=== PATIENT | female | born 1985 | race Caucasian/White ===

== ENCOUNTER 2025-05-18 11:26 | Emergency (ER) | payer MEDICAID ==
[~2025-05-18] VITALS: Ht 160 cm; Wt 59.0 kg
[2025-05-18 11:37] VITALS: BP 124/77
[2025-05-18 12:06] LABS: *BILIRUBIN,URIN NEGATIVE (NEGATIVE); *BLOOD, URINE NEGATIVE (NEGATIVE); *CLARITY,URINE CLEAR (CLEAR); *COLOR,URINE YELLOW (YELLOW); *KETONES,URINE 1+ (NEGATIVE); *PROTEIN,URINE TRACE (NEGATIVE); *UROBILINOGEN,URINE 0.2 E.U./dl (NORMAL); LEUKOCYTE ESTERASE ,URINE NEGATIVE (NEGATIVE); NITRITE, URINE NEGATIVE (NEGATIVE); UGLUCOSE NEGATIVE (NEGATIVE)
[2025-05-18 12:08] LABS: SQUAMOUS EPITHELIAL CELL,UR FEW /HPF (NONE SEEN)
[2025-05-18 12:11] LABS: *URINE HCG, QUAL NEGATIVE (NEGATIVE)
[2025-05-18 12:14] LABS: PLATELET COUNT (AUTO) 180 K/uL (179-408); RED BLOOD CELL COUNT(AUTO) 4.61 MIL/uL (3.63-4.92); RED CELL DISTRIBUTION WIDTH 13.1 % (12.3-17.7); WHITE BLOOD COUNT (AUTO) 6.5 K/uL (3.8-11.8)
[2025-05-18 12:28] LABS: ASPARTATE AMINOTRANSFERASE 21.0 U/L (15-37); CREATININE 0.7 mg/dL (0.6-1.3); SODIUM SERUM 137.0 mmol/L (136-145); TOTAL PROTEIN, SERUM 8.0 g/dL (6.4-8.2); UREA NITROGEN, BLOOD 13.0 mg/dL (7-18)
[2025-05-18 13:04] VITALS: BP 124/77; O2SAT 99
== END 2025-05-18 13:05 | disposition home or self-care (01) ==
LOC: ER 11:26
DX: B33.8 Other specified viral diseases (principal); E11.9 Type 2 diabetes mellitus without complications; Z79.899 Other long term (current) drug therapy
CPT/HCPCS: 36415; 84703; 85025; A4606; A4663

== ENCOUNTER 2025-06-08 22:19 | Emergency (ER) | payer MEDICAID ==
[~2025-06-08] VITALS: Ht 160 cm; Wt 59.0 kg
[2025-06-08 22:25] VITALS: BP 122/74
[2025-06-08] MEDS ORDERED: CEPH500C2 PO (22:34)
[2025-06-08 22:39] LABS: *BILIRUBIN,URIN NEGATIVE (NEGATIVE); *CLARITY,URINE CLEAR (CLEAR); *COLOR,URINE YELLOW (YELLOW); *KETONES,URINE NEGATIVE (NEGATIVE); *PROTEIN,URINE NEGATIVE (NEGATIVE); *UROBILINOGEN,URINE 0.2 E.U./dl (NORMAL); LEUKOCYTE ESTERASE ,URINE 1+ (NEGATIVE); NITRITE, URINE NEGATIVE (NEGATIVE); UGLUCOSE NEGATIVE (NEGATIVE)
[2025-06-08 22:42] LABS: *BLOOD, URINE TRACE (NEGATIVE)
[2025-06-08 23:07] LABS: SQUAMOUS EPITHELIAL CELL,UR FEW /HPF (NONE SEEN)
[2025-06-08 23:08] VITALS: BP 125/75; O2SAT 99
== END 2025-06-08 22:49 | disposition home or self-care (01) ==
LOC: ER 22:23
DX: N39.0 Urinary tract infection, site not specified (principal); R30.0 Dysuria
CPT/HCPCS: 87086; A4606; A4663